=== PATIENT | male | born 1990 | race Hispanic/Latino ===

== ENCOUNTER 2017-01-11 09:15 | Emergency (ER) | payer SELFPAY ==
[~2017-01-11] VITALS: Ht 180.3 cm; Wt 80.0 kg
[2017-01-11 09:17] VITALS: BP 146/91; PULSE 104; RESP 18; O2SAT 93
--- NOTE | 2017-01-11 09:25 | ED.REPORT ---
HPI-Extremity Problem Upper Date of Service Jan 11, 2017 ED Provider: Rikki Hartley Patient is a 26 year old male who presents to the ED complaining of L arm pain just prior to arrival. He was playing soccer on a wet tennis court when he fell and landed on his arm awkwardly. He arrived in a makeshift splint. Associated symptoms include L elbow swelling. He denies LOC, headache, numbness, or any other symptoms. Nursing Notes Stated Complaint: POSS LEFT ARM BROKEN Chief Complaint: Extremity Trauma Nursing Notes Reviewed: Yes Allergies: Coded Allergies: No Known Allergies (Unverified Allergy, Unknown, 02/06/15) Scheduled PRN Hydrocodone-Acetaminophen 5-325 mg (Hydrocodone-Acetaminophen 5-325 mg) 1 Each Tablet 1-2 TABLET PO Q4H PRN PRN For Pain General Time Seen by MD: 09:24 Chief Complaint Elbow injury left Hx Obtained From: Patient Arrived By: Walk-in Past Medical History Past Medical History no h/o STD Healthy Past Surgical History none reported Smoking History Current Every Day Smoker Social History Alcohol Use: "Social" Drug Use: Denies drug use Other Social History: Good social support Ambulatory Status Independent Review of Systems Musculoskeletal: Reports: Joint pain (L elbow), Joint swelling (L elbow ) Neurologic: Denies: Change LOC, Headache, Numbness Complete sys rev & neg: except as marked. Physical Exam Initial Vital Signs Vital Signs (First) Date Time Temp Pulse Resp B/P Pulse Ox O2 Delivery O2 Flow Rate FiO2 01/11/17 09:17 36.4 104 18 146/91 93 Initial VS: Reviewed Head / Eyes: Normocephalic Neck: Full range of motion Respiratory: Breath sounds normal, Clear to auscultation, No respiratory distress Cardiovascular: Intact distal pulses Skin: Warm, Dry Neurologic: Alert, Oriented, Nonfocal Psychiatric: Mood/affect normal, Behavior normal, Normal thought content General/Constitutional: Awake, Alert, Well developed Smells of EtOH. Reports he was drinking this morning before playing soccer Left Elbow: Positive: Swelling present... L elbow limited ROM. nL neurovascular status Contusion at the left lateral eyebrow and right lateral eyebrow crepitus or deformity mild abrasion is present. Interpretation & Diagnostics X-Ray Interpretation Xray Interpretation: IMPRESSION: Small elbow effusion. No definitive fracture identified. Suspect occult fracture. Dictated by: Cheryl Valerio M.D. on 01/11/2017 at 10:31 Approved by: Cheryl Valerio M.D. on 01/11/2017 at 10:32 X-Ray Ordered: Elbow left Interpretation / Wet Read by: Interpret - Radiologist, Discussed w radiologist Procedures Splint Application - Fx Mgt Time: 10:30 Procedure Performed by: Nurse Precise Anatomic Location: Left elbow Type of Immobilization: Sling, Long arm Post-Procedure / Complications: Cap refill normal, Post splint vascular nl, Post splint neuro nl, Condition improved, Tolerated procedure well, Patient stable Splint Post-Application Eval Extremity Condition: Cap refill < 2 sec, Distal sensation intact, Distal motor Intact, No compartment syndrome Re-Eval/Medical Decision Re-Evaluation/Progress : Time of Eval: 10:41 Re-Evaluation/Progress Note: Discussed imaging results. Discussed plan for discharge. Patient understands and agrees with plan. All questions addressed at this time. Counseled Regarding: Diagnosis, Lab results, Need for follow-up, When/why to return to ED Discharge & Departure Impression: Primary Impression: Occult fracture of elbow Encounter type: initial encounter Fracture type: closed Laterality: left Qualified Code: S42.402A - Unspecified fracture of lower end of left humerus, initial encounter for closed fracture Disposition: Home Discharge Condition All VS Reviewed: Yes Condition: Improved Patient Instructions: Elbow Fracture in Adults (ED) Additional Instructions: You likely have a hidden fracture in the elbow. Leave the splint on until instructed otherwise by the bone specialist. Follow-up with the orthopedic doctor a week from Thursday for recheck. It is okay to remove the splint and rewrap it if he needs to wash her arm but otherwise it should stay on all the time including when you are sleeping. Take ibuprofen 800 mg every 8 hours and additional you can take hydrocodone/APAP one or 2 every 6 hours as needed for more severe pain but do not combine this medication with alcohol. Referrals: Jose G Patterson DO 1 Week [facility] Scribe Attestation Portions of this note were transcribed by Ana Faria. I, Dr. Hartley personally performed the history, physical exam and medical decision-making; I reviewed and confirmed the accuracy of the information in the transcribed note. Signed by: Ana Faria 01/11/17, 1056 copies to: [facility] Rikki Hartley MD Jan 11, 2017 09:24 ANA FARIA Jan 11, 2017 09:28
--- NOTE | 2017-01-11 10:34 | DRSVH ---
PROCEDURE: X-RAY LEFT ELBOW COMPLETE, MINIMUM THREE VIEWS ([id number]) INDICATIONS: swollen pain TECHNIQUE: 3 views of the elbow were acquired. COMPARISON: None. FINDINGS: Bones: No fractures or dislocations. No suspicious bony lesions. Soft tissues: Small elbow joint effusion. No suspicious soft tissue calcifications. IMPRESSION: Small elbow effusion. No definitive fracture identified. Suspect occult fracture. Dictated by: Cheryl Valerio M.D. on 01/11/2017 at 10:31 Approved by: Cheryl Valerio M.D. on 01/11/2017 at 10:32
[2017-01-11] MEDS ORDERED: HYDR-4003 PO (10:54)
== END 2017-01-11 11:01 | disposition home or self-care (01) ==
LOC: SED 09:15
DX: S42.402A Unspecified fracture of lower end of left humerus, initial encounter for closed fracture (principal); W18.39XA Other fall on same level, initial encounter; Y93.66 Activity, soccer; Y92.312 Tennis court as the place of occurrence of the external cause; Y99.8 Other external cause status; F17.200 Nicotine dependence, unspecified, uncomplicated

== ENCOUNTER 2017-01-14 15:31 | Emergency (ER) | payer SELFPAY ==
[~2017-01-14 15:31] MED LIST: HYDR-4003 PO
[2017-01-14 15:35] VITALS: BP 131/86; PULSE 77; RESP 16; O2SAT 100
--- NOTE | 2017-01-14 16:39 | ED.REPORT ---
HPI-Extremity Problem Upper Date of Service Jan 14, 2017 ED Provider: Familia Gordillo MD Patient is a 26 year old male with recent possible left elbow fracture who presents to the ED complaining of bruising and finger tingling since the injury occurred 3 days ago. The patient reports tingling of his 4th and 5th fingers, especially whenever he tries to use his fingers or move his arm. He also reports extensive bruising to his arm and is concerned about this. The patient reports that his tenderness is only present at his elbow, which is unchanged from onset. He states that his arm is still swollen, but less so than immediately after the injury. He initially sustained the injury while playing soccer. X-ray from 01/11 reads "Small elbow effusion. No definitive fracture identified. Suspect occult fracture.". Patient was given Hydrocodone for his pain following the injury but states that he only has 3x tablets left. He has an appointment with an orthopedic surgeon on January 19. Nursing Notes Stated Complaint: LEFT ELBOW INJURY WORSING PAIN AND NUMBNESS IN FIN Chief Complaint: Extremity Trauma Nursing Notes Reviewed: Yes Allergies: Coded Allergies: No Known Allergies (Unverified Allergy, Unknown, 02/06/15) Scheduled PRN Hydrocodone-Acetaminophen 5-325 mg (Hydrocodone-Acetaminophen 5-325 mg) 1 Each Tablet 1-2 TABLET PO Q4H PRN PRN For Pain oxyCODONE-Acetaminophen 5-325 mg (oxyCODONE-Acetaminophen 5-325 mg) 1 Each Tablet 1 TAB PO Q4H PRN PRN For Pain General Time Seen by MD: 16:25 Chief Complaint Elbow injury left Hx Obtained From: Patient Arrived By: Walk-in Onset Occurred: 3 days ago Symptom Duration: Since onset Location: : Elbow left Quality: Painful Severity: Current: Moderate Severity: Maximum: Moderate Recent Healthcare: No recent hospitalization, Recent doctor visit Similar Sx Previous: Yes (/) Past Medical History Past Medical History no h/o STD Healthy possible recent left elbow fracture Past Surgical History none reported Smoking History Current Every Day Smoker Social History Alcohol Use: "Social" Drug Use: Denies drug use Other Social History: Good social support, , Local resident Ambulatory Status Independent Review of Systems Musculoskeletal: Reports: Extremity pain, Extremity swelling Skin: Reports Bruising, Denies Rash Neurologic: Reports: Numbness (tingling), Weakness Complete sys rev & neg: except as marked. Physical Exam Initial Vital Signs Vital Signs (First) Date Time Temp Pulse Resp B/P Pulse Ox O2 Delivery O2 Flow Rate FiO2 01/14/17 15:35 36.9 77 16 131/86 100 Room Air Initial VS: Reviewed Head / Eyes: Atraumatic, Normocephalic, PERRL ENT: Conjunctiva normal, No scleral icterus Skin: Warm, Dry, No cyanosis Neurologic: Alert, Oriented, Nonfocal Psychiatric: Mood/affect normal, Behavior normal, Normal thought content General/Constitutional: Awake, Alert, No acute distress Neck: Supple, Full range of motion Respiratory / Chest: No respiratory distress Cardiovascular: Heart rate NL, Cap refill not delayed, Peripheral circulation NL Upper Extremity / MS: Neurologic intact (sensation intact in all 5 fingers), Vascular intact, No compartment syndrome Ecchymosis about his posterior aspect of the upper left arm, compartments are soft, good radial pulses, swelling about the left elbow diffusely. Fingertips are warm and well perfused. Interpretation & Diagnostics X-Ray Interpretation Xray Interpretation: IMPRESSION: 1. Mildly displaced fracture of the capitellum. 2. Persistent joint effusion. Dictated by: Juaquin Marcos M.D. on 01/14/2017 at 18:37 Approved by: Juaquin Marcos M.D. on 01/14/2017 at 18:39 X-Ray Ordered: Elbow left Interpretation / Wet Read by: Interpret - Radiologist Re-Eval/Medical Decision Med Decision/Clinical Course Patient is a 26 year old male with recent possible left elbow fracture who presents to the ED complaining of bruising and finger tingling since the injury occurred 3 days ago. The patient reports tingling of his 4th and 5th fingers, especially whenever he tries to use his fingers or move his arm. He also reports extensive bruising to his arm and is concerned about this. The patient reports that his tenderness is only present at his elbow, which is unchanged from onset. He states that his arm is still swollen, but less so than immediately after the injury. He initially sustained the injury while playing soccer. X-ray from 01/11 reads "Small elbow effusion. No definitive fracture identified. Suspect occult fracture.". Patient was given Hydrocodone for his pain following the injury but states that he only has 3x tablets left. He has an appointment with an orthopedic surgeon on January 19. Here in the emergency department the patient is afebrile with stable vital signs and in no apparent distress. Combination reveals purplish ecchymosis about the left elbow and upper arm consistent with his known fracture. There is no evidence of compartment syndrome and the patient has good radial pulses and good sensation and strength to the fingertips. There was no evidence of skin disruption, cellulitis, septic arthritis or abscess. While he reports that he has some occasional tingling in his fourth and fifth fingers this comes and goes and seems to be associated with position and movement. He reports that his splint was uncomfortable and therefore his splint was removed and replaced. His neurovascular status remained good after splint reapplication. Initial x-ray was equivocal for fracture and therefore I repeated his x-ray today as below: 1. Mildly displaced fracture of the capitellum. 2. Persistent joint effusion. The patient has an appointment with orthopedic surgery in the next week and has been advised to follow-up with them. At this time, I feel he is appropriate for discharge home. I provided additional tablets of oxycodone for pain management and advised him to elevate his extremity and apply ice packs. Prior to discharge follow-up and return precautions were reviewed in detail with the patient who verbalized understanding and agreement with the plan. The patient was discharged in stable condition. Source of Hx: Old records Re-Evaluation/Progress : Time of Eval: 18:36 Patient Status: Condition improved Re-Evaluation/Progress Note: Patient was informed that he does have a fracture on x-ray. Patient understands and agrees with the plan to be discharged home. Discharge instructions and follow-up discussed. All questions were addressed. Return to the ED warnings given. Counseled Regarding: Diagnosis, Need for follow-up, When/why to return to ED Discharge & Departure Impression: Primary Impression: Closed fracture of capitellum of left humerus Encounter type: initial encounter Qualified Code: S42.452A - Displaced fracture of lateral condyle of left humerus, initial encounter for closed fracture Additional Impressions: Traumatic ecchymosis of left upper arm Encounter type: initial encounter Qualified Code: S40.022A - Contusion of left upper arm, initial encounter Pins and needles sensation Disposition: Home Discharge Condition All VS Reviewed: Yes Condition: Stable Patient Instructions: Elbow Fracture in Adults (ED) Additional Instructions: Thank you for seeking care at the emergency room. The x-ray today showed that you do in fact have a fracture of your elbow. Apply ice packs to your elbow. Elevate your elbow up at night. You can sleep on your back with a pillow. Keep it immobilized in a sling. You will be discharged with a prescription for Hydrocodone, take this medication as prescribed. You should follow-up with the orthopedic surgeon as planned next week. You should return to the ED immediately if you develop increased swelling, redness, weakness, numbness of your fingertips, discoloration of your fingertips , are unable to move your fingertips, or any other concerning signs or symptoms. Thank you for letting us partake in your care today. Narcotic Pain Medicine You have been prescribed a narcotic for pain relief. These drugs are usually combined with acetaminophen (Tylenol#3, Percocet, Darvocet, Anexsia, Vicodin) or aspirin (Empirin#3, Percodan, Synalogs-DC) for increased effect. Narcotics act on the central nervous system to reduce pain; they also impair mental alertness and physical abilities. We advise you not to drink alcohol, drive a car, or operate dangerous equipment when you are taking these drugs. You can lessen stomach irritation from your medicine by taking it with meals or a full glass of water. Common side effects of narcotics are: Nausea and vomiting, heartburn, constipation, dizziness, sleepiness, and mood changes. If you have bothersome side effects or symptoms of an allergic reaction (itching, hives, rash), stop taking your medicine and call your doctor or the emergency room right away. Please keep your narcotic medicine well out of the reach of children. Referrals: [facility] Scribe Attestation Portions of this note were transcribed by Mirian Guerrero. I, Dr. Gordillo personally performed the history, physical exam and medical decision-making; I reviewed and confirmed the accuracy of the information in the transcribed note. Signed by: Taco Aguilar, 01/14/2017 1926 Familia Gordillo MD Jan 14, 2017 16:38 Mirian Guerrero Jan 14, 2017 17:07
[2017-01-14] MEDS ORDERED: OXYC1TAB24 PO (17:07)
--- NOTE | 2017-01-14 18:41 | DRSVH ---
PROCEDURE: X-RAY LEFT ELBOW COMPLETE, MINIMUM THREE VIEWS ([id number]) INDICATIONS: Left elbow fracture f/u TECHNIQUE: 3 views of the elbow were acquired. COMPARISON: [facility], CR, XR ELBOW COMP MIN 3VW LT, 01/11/2017, 9:30. FINDINGS: Bones: There is a small mildly displaced fracture of the lateral aspect of the capitellum involving the radiocapitellar articulation. Soft tissues: There is an elbow joint effusion. There is increased periarticular soft tissue swellin g. No suspicious soft tissue calcifications. IMPRESSION: 1. Mildly displaced fracture of the capitellum. 2. Persistent joint effusion. Dictated by: Juaquin Marcos M.D. on 01/14/2017 at 18:37 Approved by: Juaquin Marcos M.D. on 01/14/2017 at 18:39
== END 2017-01-14 18:54 | disposition home or self-care (01) ==
LOC: SED 15:31
DX: S42.452A Displaced fracture of lateral condyle of left humerus, initial encounter for closed fracture (principal); S40.022A Contusion of left upper arm, initial encounter; R20.2 Paresthesia of skin; X58.XXXA Exposure to other specified factors, initial encounter; Y93.9 Activity, unspecified; Y92.9 Unspecified place or not applicable; Y99.9 Unspecified external cause status; F17.200 Nicotine dependence, unspecified, uncomplicated